=== PATIENT | male | born 1945 | race American Indian/Alaskan Native ===

== ENCOUNTER 2017-11-28 10:43 | Outpatient (CLI) | payer MEDICARE ==
--- NOTE | 2017-11-28 11:53 | XRay Report ---
RIGHT KNEE RADIOGRAPHS INDICATION: History of knee replacement. COMPARISON: None similar at this institution. FINDINGS: Standing AP, lateral, oblique and sunrise views of the right knee demonstrate arthroplasty components without evidence of loosening. Grossly intact articulation. No large suprapatellar effusion. Small superior patellar enthesophyte. CONCLUSION: Replaced right knee without acute radiographic abnormality, as described. Thank you for the opportunity to participate in this patient's care.
== END 2017-11-28 10:44 | disposition home or self-care (01) ==
LOC: SPVIMAG 10:43
PROVIDERS: ATTEND Orthopaedic Surgery Sports Medicine
DX: Z47.1 Aftercare following joint replacement surgery (principal); M76.891 Other specified enthesopathies of right lower limb, excluding foot; Z96.651 Presence of right artificial knee joint

== ENCOUNTER 2020-12-13 07:14 | Outpatient (CLI) | payer MEDICARE ==
[2020-12-13 08:59] LABS: Hematocrit 31.2 % (35.5-45.6); Hemoglobin 10.7 gm/dl (11.8-15.2); Mean Corpuscular HGB Conc 34 % (32-34); Mean Corpuscular Volume 95 fl (84-94); Platelet Count 125 K/mm3 (140-440); Red Blood Count 3.28 M/mm3 (3.65-5.03); Red Cell Distribution Width 15.2 % (13.2-15.2)
[2020-12-13 09:31] LABS: INR 1.15 (0.87-1.13)
[2020-12-13 09:32] LABS: Partial Thromboplastin Time 20.5 Sec. (24.2-36.6)
[2020-12-13] MEDS ORDERED: HYDROmorphone 1 MG/1 ML INJ IV ONE ×2 (09:53→10:03)
[2020-12-13] MEDS ORDERED: ONDANSETRON 4 MG/2 ML INJ IV NR (09:53)
[2020-12-13] MEDS ORDERED: HYDROmorphone 2 MG/1 ML INJ IV ONE (09:54)
[2020-12-13] MEDS ORDERED: SODIUM CHLORIDE 0.9% 500 ML 0 ML ONE (10:15)
[2020-12-13] MEDS ORDERED: LIDOCAINE (1%) 10 MG/1 ML VIAL 20 ML MDV ONE (10:29)
[2020-12-13] MEDS ORDERED: LIDOCAINE (1%) 10 MG/1 ML VIAL 20 ML MDV INFILTRATI ONE (10:47)
--- NOTE | 2020-12-13 12:06 | Cat Scan Report ---
CT-GUIDED BONE MARROW ASPIRATION AND BIOPSY INDICATION : Anemia, thrombophilia PROCEDURE: The risks (including but not limited to bleeding and infection) and benefits were explain ed to the patient and informed consent was obtained. All CT examinations performed at this facility utilize dose modulation, iterative reconstruction or weight-based dosing, when appropriate, to reduce radiation dose to as low as reasonably achievable. A time out procedure was performed. The procedu re site was prepped and draped in the usual sterile fashion and lidocaine was used for local anesthes ia. Under CT guidance, the right posterior iliac wing was selected for biopsy. An 11 gauge needle was ad vanced to the posterior margin of the iliac wing, cortex breached, and 4.5 mL bone marrow aspirate ob tained. The needle was then advanced and a bone marrow biopsy was obtained measuring approximately 2 cm. Samples were given directly to the traffic analysis technician who was present during the exam. The patient tolerated the procedure well with no complications. IMPRESSION: Technically successful bone marrow aspirate and biopsy. Signer Name: Nain Acosta Jr, MD Signed: 12/13/2020 12:01 PM Workstation Name: [id number]
[2020-12-13 12:13] VITALS: BP 142/40
== END 2020-12-13 12:35 | disposition home or self-care (01) ==
LOC: CT 07:14 → CATHLABREC 07:14
PROVIDERS: ATTEND Internal Medicine Hematology & Oncology
DX: D64.9 Anemia, unspecified (principal); D68.69 Other thrombophilia; E78.00 Pure hypercholesterolemia, unspecified; I10 Essential (primary) hypertension; G47.30 Sleep apnea, unspecified; M19.90 Unspecified osteoarthritis, unspecified site; F41.9 Anxiety disorder, unspecified; Z96.653 Presence of artificial knee joint, bilateral; Z98.890 Other specified postprocedural states; Z79.899 Other long term (current) drug therapy; Z79.82 Long term (current) use of aspirin; Z95.5 Presence of coronary angioplasty implant and graft
CPT/HCPCS: 36415; 38222; 85007; 85027; 85097; 85610; 85730; 88161; 88305; 88311; 88313; J1170; J2405; J7040